=== PATIENT | male | born 1995 | race Caucasian/White ===

== ENCOUNTER 2017-06-22 14:26 | Emergency (ER) | payer MEDICAID, MEDICARE, OTHER ==
[2017-06-22] MEDS ORDERED: TETANUS/DIPHTHERIA TOXOID [ADULT] 0.5 ML VIAL IM ONE (15:32)
[2017-06-22] MEDS ORDERED: LIDOCAINE HCL 1% 20 ML VIAL ONE (15:33)
== END 2017-06-22 15:46 | disposition home or self-care (01) ==
LOC: EDH 14:26
DX: S91.115A Laceration without foreign body of left lesser toe(s) without damage to nail, initial encounter (principal); W22.8XXA Striking against or struck by other objects, initial encounter; Y93.89 Activity, other specified; Y92.098 Other place in other non-institutional residence as the place of occurrence of the external cause; Y99.8 Other external cause status
CPT/HCPCS: 12001; 90471; 90714